=== PATIENT | female | born 1995 | race Two or more races ===

== ENCOUNTER 2024-04-23 16:47 | Emergency (ER) | payer OTHER ==
[~2024-04-23] VITALS: Ht 167.6 cm; Wt 61.2 kg
[2024-04-23 18:10] LABS: HEMATOCRIT 38.2 % (36.0-45.00); HEMOGLOBIN 13.3 g/dL (12.0-15.00); MEAN CELL VOLUME 95.2 fL (80.00-100.00); MEAN CORPUSCULAR HEMOGLOBIN 33.1 pg (27.00-32.0); MEAN CORPUSCULAR HGB CONC 34.8 g/dl (32.0-36.0); PLATELET COUNT 362 K/uL (150-450); RED BLOOD COUNT 4.02 M/uL (4.00-6.00); RED CELL DISTRIBUTION WIDTH 12.6 % (11.5-14.5)
[2024-04-23 18:33] LABS: INR 1.09; PARTIAL THROMBOPLASTIN TIME 27.5 SECONDS (22.0-34.0); PROTHROMBIN TIME 11.4 SECONDS (9.0-11.5)
[2024-04-23 18:44] LABS: BILIRUBIN TOTAL 0.48 mg/dL (0.3-1.2); CALCIUM 10.2 mg/dL (8.5-10.1); CREATININE SERUM 0.9 mg/dL (0.55-1.02); GFR 74.55; GLOBULINA 3.4 G/DL (2.4-3.5); POTASSIUM 3.35 mEq/L (3.5-5.1); TOTAL PROTEIN 8.4 gm/dL (6.4-8.2)
[2024-04-23 19:15] LABS: ABG PH 7.506 (7.35-7.45); ABG PO2 106.7 mmHg (80-100); ABG pCO2 26.6 mmHg (35-45); BICARBONATE 20.5 mmol/l (23-25); SaO2 98.6 %; Tco2 21.3 mmol/l; allen test SATISFACTORY; puncture site RADIAL LEFT
[2024-04-23 19:16] LABS: o2 21 %
[2024-04-23] MEDS ORDERED: ACETAMINOPHEN 500 MG GEL..CAP PO ONE (19:33)
== END 2024-04-23 22:57 | disposition home or self-care (01) ==
LOC: ER 16:48
PROVIDERS: Emergency Medicine
DX: R42 Dizziness and giddiness (principal); F41.0 Panic disorder [episodic paroxysmal anxiety]